=== PATIENT | female | born 1985 | race Hispanic/Latino ===

== ENCOUNTER 2021-06-28 20:15 | Inpatient (IN) | payer OTHER ==
[~2021-06-28] VITALS: Ht 162.6 cm; Wt 95.7 kg
[2021-06-28] MEDS ORDERED: LACTATED RINGERS 1000ML 1,000 ML IV ONE ×2 (21:00→21:02)
[2021-06-28 21:01] LABS: BASOPHILS % (AUTO) 0.9 % (0.0-5.0); EOSINOPHILS % (AUTO) 0.6 % (0.0-8.0); HEMATOCRIT 21.4 % (36-48); LYMPHOCYTES % (AUTO) 13.9 % (21.0-51.0); MEAN CORPUSCULAR HEMOGLOBIN 32.1 pg (27.0-33.0); MEAN CORPUSCULAR HGB CONC 33.2 g/dL (32.0-36.0); MEAN CORPUSCULAR VOLUME 96.8 fL (79-99); MONOCYTES % (AUTO) 8.7 % (3.0-13.0); NEUTROPHILS % (AUTO) 75.1 % (40.0-77.0); PLATELET COUNT (AUTO) 253 K/uL (130-400); RED BLOOD CELL COUNT(AUTO) 2.21 MIL/uL (4.00-5.50); RED CELL DISTRIBUTION WIDTH 14.5 % (11.0-15.5); WHITE BLOOD COUNT (AUTO) 9.7 K/uL (4.8-10.8)
[2021-06-28 21:02] LABS: APPEARANCE,URINE Clear (CLEAR); BILIRUBIN,URINE Small (NEGATIVE); COLOR,URINE Dark Yellow (YELLOW); GLUCOSE, URINE (UA) Negative (NEGATIVE); KETONES,URINE Trace mg/dL (NEGATIVE); LEUKOCYTE ESTERASE ,URINE Trace (NEGATIVE); NITRATE,URINE Negative (NEGATIVE); OCCULT BLOOD,URINE Negative (NEGATIVE); PROTEIN,URINE Negative (NEGATIVE)
[2021-06-28 21:07] LABS: BACTERIA,URINE Few /HPF (None Seen); MUCUS,URINE Few LPF (None Seen); RBC,URINE 0-1 /HPF (0-1); SQUAMOUS EPITHELIAL CELL,UR Few /HPF (0-2)
[2021-06-28 21:13] LABS: INR 1.18 (0.85-1.15); PROTHROMBIN TIME 12.7 SEC (9.6-11.6)
[2021-06-28 21:16] LABS: PARTIAL THROMBOPLASTIN TIME 25.7 SEC (26.3-35.5)
[2021-06-28 21:19] LABS: ALBUMIN 3.2 g/dL (3.5-5.0); CREATININE 0.9 mg/dL (0.5-1.5); TOTAL PROTEIN, SERUM 7.1 g/dL (6.0-8.3)
[2021-06-28] MEDS ORDERED: 0.9%NACL 1000ML 1,000 ML IV SCH (23:30)
[2021-06-29] MEDS ORDERED: ONDANSETRON 4MG INJ IV PRN (00:30)
[2021-06-29] MEDS ORDERED: ACETAMINOPHEN 325 MG TAB PO PRN ×2 (00:30)
[2021-06-29] MEDS: 0.9%NACL 1000ML 1,000 ML IV SCH ×2 (02:30→17:41)
[2021-06-29 03:10] VITALS: BP 121/82
[2021-06-29 06:27] LABS: BASOPHILS % (AUTO) 0.4 % (0.0-5.0); EOSINOPHILS % (AUTO) 0.2 % (0.0-8.0); LYMPHOCYTES % (AUTO) 20.1 % (21.0-51.0); MEAN CORPUSCULAR HEMOGLOBIN 29.8 pg (27.0-33.0); MEAN CORPUSCULAR HGB CONC 32.7 g/dL (32.0-36.0); MEAN CORPUSCULAR VOLUME 91.2 fL (79-99); MONOCYTES % (AUTO) 10.1 % (3.0-13.0); NEUTROPHILS % (AUTO) 68.7 % (40.0-77.0); PLATELET COUNT (AUTO) 155 K/uL (130-400); RED BLOOD CELL COUNT(AUTO) 1.71 MIL/uL (4.00-5.50); RED CELL DISTRIBUTION WIDTH 19.6 % (11.0-15.5); WHITE BLOOD COUNT (AUTO) 9.1 K/uL (4.8-10.8)
[2021-06-29 06:48] LABS: ALBUMIN 2.5 g/dL (3.5-5.0); CREATININE 0.8 mg/dL (0.5-1.5); POTASSIUM 3.9 mmol/L (3.5-5.1); TOTAL PROTEIN, SERUM 5.8 g/dL (6.0-8.3)
[2021-06-29 07:04] LABS: HEMATOCRIT 15.6 % (36-48)
[2021-06-29 07:25] VITALS: BP 113/68
[2021-06-29] MEDS: FAMOTIDINE 20MG VIAL IV SCH ×2 (08:39→20:48)
[2021-06-29] MEDS ORDERED: 0.9% NACL 250ML 250 ML ONE (09:33)
[2021-06-29 11:30] VITALS: BP 104/61
[2021-06-29] MEDS ORDERED: MEDROXYPROGESTERONE ACET 5 MG TAB PO SCH (12:30)
[2021-06-29 15:30] VITALS: BP 112/69
[2021-06-29 19:46] VITALS: BP 110/67
[2021-06-29 21:30] LABS: HEMATOCRIT 22.1 % (36-48); MEAN CORPUSCULAR HEMOGLOBIN 30.4 pg (27.0-33.0); MEAN CORPUSCULAR HGB CONC 33.9 g/dL (32.0-36.0); MEAN CORPUSCULAR VOLUME 89.5 fL (79-99); NUCLEATED RED BLOOD CELLS 0.2 % (0.0-0.19); RED BLOOD CELL COUNT(AUTO) 2.47 MIL/uL (4.00-5.50); RED CELL DISTRIBUTION WIDTH 17.2 % (11.0-15.5); WHITE BLOOD COUNT (AUTO) 11.9 K/uL (4.8-10.8)
[2021-06-29 23:31] VITALS: BP 119/74
[2021-06-30 04:02] VITALS: BP 99/58
[2021-06-30 04:40] LABS: HEMATOCRIT 21.1 % (36-48); MEAN CORPUSCULAR HGB CONC 32.2 g/dL (32.0-36.0); RED BLOOD CELL COUNT(AUTO) 2.27 MIL/uL (4.00-5.50); RED CELL DISTRIBUTION WIDTH 18.1 % (11.0-15.5); WHITE BLOOD COUNT (AUTO) 10.3 K/uL (4.8-10.8)
[2021-06-30 04:50] LABS: CREATININE 0.8 mg/dL (0.5-1.5); POTASSIUM 3.4 mmol/L (3.5-5.1)
[2021-06-30] MEDS ORDERED: 0.9% NACL 250ML 250 ML ONE (05:26)
[2021-06-30 07:20] VITALS: BP 132/80
[2021-06-30] MEDS: FAMOTIDINE 20MG VIAL IV SCH ×2 (08:58→21:22)
[2021-06-30] MEDS: MEDROXYPROGESTERONE ACET 5 MG TAB PO SCH ×2 (08:59→21:21)
[2021-06-30 11:20] VITALS: BP 135/89
[2021-06-30 14:17] LABS: HEMATOCRIT 26.5 % (36-48)
[2021-06-30 15:25] VITALS: BP 134/85
[2021-06-30 19:38] LABS: HEMATOCRIT 26.3 % (36-48)
[2021-06-30 20:07] VITALS: BP 144/93
[2021-06-30 23:51] VITALS: BP 119/82
[2021-07-01 03:50] VITALS: BP 122/72
[2021-07-01 05:14] LABS: HEMATOCRIT 23.5 % (36-48); MEAN CORPUSCULAR HEMOGLOBIN 29.1 pg (27.0-33.0); MEAN CORPUSCULAR HGB CONC 31.9 g/dL (32.0-36.0); MEAN CORPUSCULAR VOLUME 91.1 fL (79-99); NUCLEATED RED BLOOD CELLS 0.3 % (0.0-0.19); RED BLOOD CELL COUNT(AUTO) 2.58 MIL/uL (4.00-5.50); RED CELL DISTRIBUTION WIDTH 19.4 % (11.0-15.5); WHITE BLOOD COUNT (AUTO) 6.7 K/uL (4.8-10.8)
[2021-07-01 05:31] LABS: CREATININE 0.7 mg/dL (0.5-1.5); POTASSIUM 3.7 mmol/L (3.5-5.1)
[2021-07-01 08:00] VITALS: BP 129/93
[2021-07-01] MEDS ORDERED: FERR-82 PO (08:33)
[2021-07-01] MEDS: FAMOTIDINE 20MG VIAL IV SCH (08:50)
[2021-07-01] MEDS: MEDROXYPROGESTERONE ACET 5 MG TAB PO SCH (08:51)
[2021-07-01] MEDS ORDERED: MEDR10TA PO (11:35)
== END 2021-07-01 12:50 | disposition home or self-care (01) | DRG 812 ==
LOC: EDH 20:15 → EDHIP 20:16 → OBSVTOIN 20:16 → EDHIP 22:21 → UNDOADMOB 22:21 → 3BH 06-29 03:00
PROVIDERS: ADMIT Hospitalist; ATTEND Hospitalist
PROC: 30233N1 Transfusion of Nonautologous Red Blood Cells into Peripheral Vein, Percutaneous Approach (ICD-10-PCS; principal; 2021-06-28)
DX: D62 Acute posthemorrhagic anemia (principal); E87.1 Hypo-osmolality and hyponatremia; N83.202 Unspecified ovarian cyst, left side; E66.9 Obesity, unspecified; N92.0 Excessive and frequent menstruation with regular cycle; Z98.82 Breast implant status; Z68.36 Body mass index [BMI] 36.0-36.9, adult
CPT/HCPCS: 36415; 36430; 76856; 80048; 80053; 81001; 82728; 82948; 83540; 83550; 84703; 85014; 85018; 85025; 85027; 85610; 85730; 86850; 86900; 86901; 86923; G0378; J2405; J3490; J7030; J7050; J7120; P9016

== ENCOUNTER 2023-05-28 16:46 | Emergency (ER) | payer OTHER ==
[~2023-05-28] VITALS: Ht 162.6 cm; Wt 81.6 kg
[~2023-05-28 16:46] MED LIST: FERR-82 PO; MEDR10TA PO
[2023-05-28 17:29] LABS: BASOPHILS # (AUTO) 0.03 K/uL (0.00-0.20); BASOPHILS % (AUTO) 0.6 % (0.0-5.0); EOSINOPHILS # (AUTO) 0.01 K/uL (0.00-0.70); EOSINOPHILS % (AUTO) 0.2 % (0.0-8.0); HEMATOCRIT 34.3 % (36-48); IMMATURE GRANULOCYTE ABSOLUTE 0.02 K/uL (0-1); LYMPHOCYTES # (AUTO) 0.4 K/uL (1.0-4.8); LYMPHOCYTES % (AUTO) 8.4 % (21.0-51.0); MEAN CORPUSCULAR HEMOGLOBIN 30.7 pg (27.0-33.0); MEAN CORPUSCULAR HGB CONC 35.6 g/dL (32.0-36.0); MEAN CORPUSCULAR VOLUME 86.4 fL (79-99); MONOCYTES # (AUTO) 0.3 K/uL (0.1-1.0); MONOCYTES % (AUTO) 6.5 % (3.0-13.0); NEUTROPHILS # (AUTO) 4.3 K/uL (1.8-7.7); NEUTROPHILS % (AUTO) 83.9 % (40.0-77.0); PLATELET COUNT (AUTO) 97 K/uL (130-400); RED BLOOD CELL COUNT(AUTO) 3.97 MIL/uL (4.00-5.50); RED CELL DISTRIBUTION WIDTH 13.9 % (11.0-15.5); WHITE BLOOD COUNT (AUTO) 5.1 K/uL (4.8-10.8)
[2023-05-28 17:51] LABS: ALANINE AMINOTRANSFERASE 125 U/L (12-78); ALCOHOL, BLOOD < 3 mg/dL (0-10); ASPARTATE AMINOTRANSFERASE 80 U/L (10-37); BILIRUBIN,TOTAL 0.6 mg/dL (0.2-1.0); CARBON DIOXIDE 28 mmol/L (21-32); CREATINE KINASE, TOTAL 281 U/L (21-232); CREATININE 0.7 mg/dL (0.5-1.5); GLOMERULAR FILTR. RATE CALC 113 mL/min (>90); GLUCOSE,RANDOM 210 mg/dL (70-105); POTASSIUM 3.1 mmol/L (3.5-5.1); SODIUM SERUM 126 mmol/L (136-145); TOTAL PROTEIN, SERUM 8.2 g/dL (6.0-8.3); UREA NITROGEN, BLOOD 2 mg/dL (7-18)
[2023-05-28 17:55] LABS: ACETAMINOPHEN < 1 mcg/mL (10-30); SALICYLATE < 2.8 mg/dL (2.8-20.0)
[2023-05-28] MEDS: HYDROXYZINE 25 MG TABLET PO ONE (17:55)
[2023-05-28 17:57] LABS: CHLORIDE 86 mmol/L (101-111)
[2023-05-28 18:11] LABS: APPEARANCE,URINE CLEAR (CLEAR); BILIRUBIN,URINE NEGATIVE (NEGATIVE); COLOR,URINE COLORLESS (YELLOW); GLUCOSE, URINE (UA) NEGATIVE (NEGATIVE); KETONES,URINE NEGATIVE (NEGATIVE); LEUKOCYTE ESTERASE ,URINE 25 Leu/uL (NEGATIVE); NITRATE,URINE NEGATIVE (NEGATIVE); OCCULT BLOOD,URINE NEGATIVE (NEGATIVE); PROTEIN,URINE NEGATIVE (NEGATIVE); UROBILINOGEN,URINE 0.2 mg/dL (0.2-1.0)
[2023-05-28 18:20] LABS: ADD UA MICROSCOPIC YES
[2023-05-28 18:30] LABS: BACTERIA,URINE RARE /HPF (None Seen); RBC,URINE 0-1 /HPF (0-1); SQUAMOUS EPITHELIAL CELL,UR RARE /HPF (0-2)
[2023-05-28] MEDS ORDERED: CEPH500T PO (18:34)
[2023-05-28] MEDS ORDERED: METO-296 PO (18:34)
[2023-05-28] MEDS ORDERED: PHEN-847 PO (18:34)
[2023-05-28] MEDS ORDERED: HYDR50CA50 PO (18:34)
[2023-05-28] MEDS: CEPHALEXIN 500 MG CAPSULE PO ONE (19:45)
[2023-05-28] MEDS: PHENAZOPYRIDINE HCL 200 MG TABLET PO ONE (19:45)
[2023-05-28] MEDS: POTASSIUM BICARB/CIT AC 25 MEQ TABLET.EFF PO ONE (19:46)
[2023-05-28 20:04] VITALS: BP 151/89; PULSE 105; RESP 20; O2SAT 97
== END 2023-05-28 20:10 | disposition home or self-care (01) ==
LOC: EDH 16:46
DX: N39.0 Urinary tract infection, site not specified (principal); F41.9 Anxiety disorder, unspecified; E87.6 Hypokalemia; E03.9 Hypothyroidism, unspecified; E66.9 Obesity, unspecified; Z79.899 Other long term (current) drug therapy; Z98.890 Other specified postprocedural states
CPT/HCPCS: 99284; 82550; 80053; 84703; 85025; 87088; 36415; 93005; 81001; G0481

== ENCOUNTER 2023-05-28 23:31 | Emergency (ER) | payer OTHER ==
[~2023-05-28] VITALS: Ht 162.6 cm; Wt 79.4 kg
[~2023-05-28 23:31] MED LIST changes: +CEPH500T PO; +HYDR50CA50 PO; +METO-296 PO; +PHEN-847 PO
[2023-05-28 23:56] LABS: BASOPHILS # (AUTO) 0.02 K/uL (0.00-0.20); BASOPHILS % (AUTO) 0.2 % (0.0-5.0); EOSINOPHILS # (AUTO) 0.02 K/uL (0.00-0.70); EOSINOPHILS % (AUTO) 0.2 % (0.0-8.0); HEMATOCRIT 35.9 % (36-48); IMMATURE GRANULOCYTE ABSOLUTE 0.03 K/uL (0-1); LYMPHOCYTES # (AUTO) 0.5 K/uL (1.0-4.8); MEAN CORPUSCULAR HGB CONC 34.8 g/dL (32.0-36.0); MEAN CORPUSCULAR VOLUME 89.1 fL (79-99); MONOCYTES # (AUTO) 0.6 K/uL (0.1-1.0); MONOCYTES % (AUTO) 6.3 % (3.0-13.0); NEUTROPHILS # (AUTO) 7.6 K/uL (1.8-7.7); PLATELET COUNT (AUTO) 95 K/uL (130-400); RED BLOOD CELL COUNT(AUTO) 4.03 MIL/uL (4.00-5.50); RED CELL DISTRIBUTION WIDTH 14.2 % (11.0-15.5); WHITE BLOOD COUNT (AUTO) 8.7 K/uL (4.8-10.8)
[2023-05-29 00:25] LABS: B-TYPE NATRIURETIC PEPTIDE 34 pg/mL (0-100)
[2023-05-29 00:29] LABS: ALBUMIN 4.1 g/dL (3.5-5.0); BILIRUBIN,TOTAL 0.6 mg/dL (0.2-1.0); POTASSIUM 3.1 mmol/L (3.5-5.1); TOTAL PROTEIN, SERUM 8.2 g/dL (6.0-8.3)
[2023-05-29 00:30] LABS: ABG BASE EXCESS 3.5 mmol/L (-2.0-3.0); ABG HCO3 26.1 mmol/L (21.0-28.0); ABG OXYGEN SATURATION 96.5 % (95.0-99.0); ABG PCO2 34 mmHg (32-45); ABG PH 7.506 (7.350-7.450); DEVICE COMMENT LR RN; PO2, ARTERIAL BG 77.4 mmHg (83.0-108.0); VENT MODE, BG RA (ROOM AIR)
[2023-05-29 00:35] LABS: APPEARANCE,URINE CLEAR (CLEAR); BILIRUBIN,URINE NEGATIVE (NEGATIVE); COLOR,URINE DARK-YELLOW (YELLOW); GLUCOSE, URINE (UA) NEGATIVE (NEGATIVE); KETONES,URINE NEGATIVE (NEGATIVE); LEUKOCYTE ESTERASE ,URINE 25 Leu/uL (NEGATIVE); NITRATE,URINE NEGATIVE (NEGATIVE); OCCULT BLOOD,URINE SMALL (NEGATIVE); PH,URINE 7.5 (5.0-8.0); PROTEIN,URINE NEGATIVE (NEGATIVE); UROBILINOGEN,URINE 0.2 mg/dL (0.2-1.0)
[2023-05-29 00:39] LABS: ADD UA MICROSCOPIC YES
[2023-05-29 00:41] LABS: BACTERIA,URINE RARE /HPF (None Seen); RBC,URINE 0-1 /HPF (0-1); SQUAMOUS EPITHELIAL CELL,UR RARE /HPF (0-2)
[2023-05-29] MEDS: LEVETIRACETAM 500 MG/5 ML SD VIAL IV SCH ×2 (00:46→10:54)
[2023-05-29] MEDS: 0.9%NACL 1000ML 1,641 ML IV ONE (00:47)
[2023-05-29] MEDS: 0.9%NACL 1000ML 1,000 ML IV ONE (00:47)
[2023-05-29 02:09] LABS: AMPHET/METH SCREEN,URINE NEGATIVE (NEGATIVE); BARBITURATE SCREEN, URINE NEGATIVE (NEGATIVE); BENZODIAZEPINES SCREEN,URINE NEGATIVE (NEGATIVE); CANNABINOID SCREEN,URINE POSITIVE (NEGATIVE); COCAINE SCREEN,URINE NEGATIVE (NEGATIVE); OPIATE SCREEN,URINE NEGATIVE (NEGATIVE); PHENCYCLIDINE SCREEN,URINE NEGATIVE (NEGATIVE)
[2023-05-29] MEDS: IBUPROFEN 600 MG TABLET PO ONE (10:54)
[2023-05-29] MEDS: CEFTRIAXONE 2GM VIAL IVPB ONE (10:54)
[2023-05-29] MEDS: ACETAMINOPHEN 500 MG TABLET PO ONE (10:54)
[2023-05-29 12:51] VITALS: BP 141/91; PULSE 117; RESP 19; O2SAT 99
== END 2023-05-29 13:28 | disposition short-term general hospital (02) ==
LOC: EDH 23:31
DX: R56.9 Unspecified convulsions (principal); N39.0 Urinary tract infection, site not specified; E03.9 Hypothyroidism, unspecified; E66.9 Obesity, unspecified; F41.9 Anxiety disorder, unspecified; Z79.899 Other long term (current) drug therapy; Z98.890 Other specified postprocedural states
CPT/HCPCS: 99285; 96365 ×2; 70450; 71045; 82550; 84484; 80053; 82803; 83880; 80305; 85025; 87040 ×2; 87088; 83605 ×2; 81025; 36415; 93005; 81001; 96361; 96367; 96375; J1953 ×2; J0696